=== PATIENT | female | born 1940 | race Two or more races ===

== ENCOUNTER 2024-11-13 17:42 | Inpatient (IN) | payer MEDICARE, OTHER ==
[~2024-11-13] VITALS: Ht 152.4 cm; Wt 51.3 kg
[2024-11-13] MEDS ORDERED: LINA5TAB PO (18:33)
[2024-11-13] MEDS ORDERED: GLIP10TA11 PO (18:33)
[2024-11-13] MEDS ORDERED: ATOR10TA PO (18:33)
[2024-11-13] MEDS ORDERED: FERR325T29 PO (18:33)
[2024-11-13] MEDS ORDERED: BENA40TA8 PO (18:33)
[2024-11-13] MEDS ORDERED: HYDR-4076 PO (18:33)
[2024-11-13] MEDS ORDERED: CALC-17 PO (18:33)
[2024-11-13] MEDS ORDERED: ASPI-1420 PO (18:33)
[2024-11-13] MEDS ORDERED: LEVO50TA8 PO (18:33)
[2024-11-13] MEDS ORDERED: METF-441 PO (18:33)
[2024-11-13 20:00] VITALS: BP 165/56; TEMP 97; O2SAT 96
[2024-11-13] MEDS ORDERED: ONDANSETRON HCL/PF 4 MG/2 ML VIAL IVP PRN (21:00)
[2024-11-13] MEDS ORDERED: MAG HYDROX/AL HYDROX/SIMETH 30 ML UDC PO PRN (21:00)
[2024-11-13] MEDS ORDERED: MAGNESIUM HYDROXIDE 30 ML UDC PO PRN (21:00)
[2024-11-13] MEDS: ENOXAPARIN SODIUM 40 MG/0.4 ML DISP.SYRIN SQ SCH (21:58)
[2024-11-13] MEDS: ATORVASTATIN 10 MG TABLET PO SCH (22:28)
[2024-11-14] VITALS (11 sets, daily range): BP systolic 137–179; BP diastolic 53–69; TEMP 97.9–99; O2SAT 93–97
[2024-11-14] MEDS ORDERED: DOXYCYCLINE 100 MG VIAL ONE (00:12)
[2024-11-14] MEDS: DOXYCYCLINE 100 MG in IV D5W 100 ML IV SCH ×2 (01:39→21:53)
[2024-11-14 07:51] LABS: ALBUMIN 3.1 g/dL (3.4-5.0); BILIRUBIN,TOTAL 0.3 mg/dL (0.2-1.0); CALCIUM, SERUM 8.9 mg/dL (8.5-10.1); CREATININE 0.8 mg/dL (0.6-1.3); MAGNESIUM 1.7 mg/dL (1.8-2.4); PHOSPHORUS 3.6 mg/dL (2.5-4.9); POTASSIUM 3.6 mmol/L (3.5-5.1); TOTAL PROTEIN, SERUM 6.9 g/dL (6.4-8.2)
[2024-11-14 07:53] LABS: BASOPHILS % (AUTO) 0.2 % (0.0-2.0); EOSINOPHILS # (AUTO) 0.1 K/uL (0.0-0.7); EOSINOPHILS % (AUTO) 0.9 % (0.0-6.0); HEMATOCRIT 33 % (33-45); HEMOGLOBIN 10.9 g/dL (11.5-14.8); LYMPHOCYTES # (AUTO) 1.3 K/uL (0.8-4.8); LYMPHOCYTES % (AUTO) 22.1 % (20.0-44.0); MEAN CORPUSCULAR HEMOGLOBIN 29 PG (26.0-33.0); MEAN CORPUSCULAR HGB CONC 33 g/dl (31.0-36.0); MEAN CORPUSCULAR VOLUME 86 fL (82-100); MONOCYTES # (AUTO) 0.4 K/uL (0.1-1.30); MONOCYTES % (AUTO) 7.2 % (2.0-12.0); NEUTROPHILS # (AUTO) 4.2 K/uL (1.8-8.9); NEUTROPHILS % (AUTO) 69.6 % (43.0-81.0); PLATELET COUNT (AUTO) 178 K/uL (150-450); RED BLOOD CELL COUNT(AUTO) 3.84 MIL/uL (4.0-5.2); RED CELL DISTRIBUTION WIDTH 14.4 % (11.5-15.0)
[2024-11-14 08:20] LABS: THYROID STIMULATING HORMONE 11.01 uIU/mL (0.358-3.74)
[2024-11-14] MEDS: BENAZEPRIL HCL 20 MG TABLET PO SCH (08:24)
[2024-11-14] MEDS: FERROUS SULFATE (325 MG) 325 MG/TAB TABLET PO SCH (08:25)
[2024-11-14] MEDS: ASPIRIN EC 81 MG TABLET.DR PO SCH (08:25)
[2024-11-14] MEDS: LEVOTHYROXINE SODIUM 50 MCG TABLET PO SCH (08:25)
[2024-11-14] MEDS: PANTOPRAZOLE 40 MG VIAL IV SCH (08:25)
[2024-11-14] MEDS: CALCIUM CARB 600MG /VIT D 1 EACH TABLET PO SCH (08:25)
[2024-11-14] MEDS: LINAGLIPTIN 5 MG TABLET PO SCH (08:25)
[2024-11-14] MEDS ORDERED: Medication Not On Formulary EA (Benazepril Hcl 40 MG) PO SCH (09:00)
[2024-11-14] MEDS ORDERED: VITAMIN D3 PO SCH (09:00)
[2024-11-14] MEDS ORDERED: CALCIUM CARBONATE PO SCH (09:00)
[2024-11-14] MEDS ORDERED: [UNRECOGNIZED DRUG - OTHER] PO SCH (09:00)
[2024-11-14] MEDS: CEFTRIAXONE 2 G in IV D5W 100 ML IV SCH (09:45)
[2024-11-14] MEDS ORDERED: TRAV2.5D7 EACHEYE (09:50)
[2024-11-14] MEDS ORDERED: BRIN8DRO2 EACHEYE (09:50)
[2024-11-14] MEDS: hydrALAZINE HCL 25 MG TABLET PO PRN (12:26)
[2024-11-14] MEDS: hydrALAZINE HCL 25 MG TABLET PO ONE (18:05)
[2024-11-15] VITALS: BP 177/58; TEMP 98.8; O2SAT 96
[2024-11-15 04:00] VITALS: BP 162/67; TEMP 98.6; O2SAT 95
[2024-11-15 07:06] LABS: APPEARANCE,URINE CLEAR (CLEAR); BILIRUBIN,URINE NEGATIVE (NEGATIVE); BLOOD, URINE NEGATIVE Ery/uL (NEGATIVE); COLOR,URINE YELLOW (YELLOW); KETONES,URINE NEGATIVE (NEGATIVE); LEUKOCYTE ESTERASE ,URINE NEGATIVE (NEGATIVE); NITRITE, URINE NEGATIVE (NEGATIVE); PROTEIN,URINE TRACE mg/dl (NEGATIVE); UGLUCOSE 1+ mg/dL (NEGATIVE); UROBILINOGEN,URINE 0.2 EU/dL (0.2)
[2024-11-15 07:25] LABS: ADD URINE CULTURE NO; BACTERIA,URINE Few /HPF (None Seen); SQUAMOUS EPITHELIAL CELL,UR Few /HPF (None Seen); WBC,URINE 0-2 /HPF (0-3)
[2024-11-15] MEDS: LEVOTHYROXINE SODIUM 75 MCG TABLET PO SCH (07:59)
[2024-11-15 08:00] VITALS: BP 165/61; TEMP 99.3; O2SAT 95
[2024-11-15] MEDS: ACETAMINOPHEN 325 MG TABLET PO PRN (08:04)
[2024-11-15] MEDS: PANTOPRAZOLE 40 MG TABLET.DR PO SCH (08:42)
[2024-11-15] MEDS: hydrALAZINE HCL 25 MG TABLET PO PRN (11:40)
[2024-11-15 12:43] VITALS: BP 168/72; TEMP 98.1; O2SAT 97
[2024-11-15] MEDS: BRINZOLAMIDE 1 % OPHTH SOLN 10 ML BOTTLE EACHEYE SCH (12:44)
[2024-11-15] MEDS ORDERED: LEVO500T90 PO (14:34)
[2024-11-15 17:39] VITALS: BP 154/74
[2024-11-15] MEDS ORDERED: LATANOPROST EYE DROP 0.005% 2.5 ML BOTTLE OP SCH (22:00)
[2024-11-15] MEDS ORDERED: TRAVOPROST (BENZALKONIUM) 2.5 ML BOTTLE EACHEYE SCH (22:00)
== END 2024-11-15 19:00 | disposition home health service (06) | DRG 177 ==
LOC: TELE 17:42
DX: J15.69 Pneumonia due to other Gram-negative bacteria (principal); G93.41 Metabolic encephalopathy; E44.1 Mild protein-calorie malnutrition; E11.649 Type 2 diabetes mellitus with hypoglycemia without coma; I10 Essential (primary) hypertension; E03.9 Hypothyroidism, unspecified; Z79.82 Long term (current) use of aspirin; Z79.84 Long term (current) use of oral hypoglycemic drugs; Z79.890 Hormone replacement therapy; E78.5 Hyperlipidemia, unspecified; E88.09 Other disorders of plasma-protein metabolism, not elsewhere classified
CPT/HCPCS: 36415; 71045-TC; 80053-TC; 80061-TC; 81001; 82962-TC; 83735-TC; 84100-TC; 84443-TC; 84484-TC; 85025-TC; 87040-TC; 87086-TC; 97110-TC; 97116-TC; 97530-TC; A4223; G0378; J0696; J1650; J2470; J3490; J7050; J7060